=== PATIENT | female | born 1945 | race Caucasian/White ===

== ENCOUNTER → 2016-11-13 | Outpatient (CLI) | payer OTHER ==
[~2016-11-13] MED LIST: AMOXICILLIN875 MG PO; ASPIRIN 32325 MG/TAB PO; CEPHALEXIN500 M1 PO; CLINDAMYCIN HC300 MG PO; CRESTOR40 MG PO; ECOTRIN325 MG PO; EPA FISH OIL1000 MG PO; FISH OIL CONC1000 MG PO; FLEXERIL 1010 MG/TAB PO; FORTAMET1000 MG PO; GLUCOPHAGE1000 MG PO; HCTZ 25MG TAB25 MG PO; HCTZ PO; LISINOPRIL PO; LISINOPRIL10 MG PO; LORTAB 5/500 501 TAB PO; MVI PO; NORCO 325 MG-51 TAB PO; NORCO 325 MG-7.1 TAB PO; PRAVACHOL 40MG40 MG PO; PREDNISONE10 MG; PREDNISONE20 MG PO; SYNTHROID PO; SYNTHROID0.175 MG PO; SYNTHROID0.2 MG/TAB PO; VITAMIN; ZESTRIL 10MG10 MG PO; ZESTRIL 20MG TA20 MG PO; ZESTRIL 5MG5 MG PO; ZOFRAN 4MG T4 MG/TAB PO
[2016-11-13 14:12] LABS: CALCIUM 9.7 mg/dL (8.4-10.2); CREATININE, serum 1.66 mg/dL (0.52-1.25); POTASSIUM 4.9 mmol/L (3.4-5.0)
== END ==
LOC: COL.LAB 13:07
PROVIDERS: Internal Medicine Nephrology
DX: N18.3 Chronic kidney disease, stage 3 (moderate) (principal)

== ENCOUNTER → 2016-12-27 | Outpatient (CLI) | payer OTHER ==
[2016-12-27 08:38] LABS: CALCIUM 9.4 mg/dL (8.4-10.2); CREATININE, serum 1.5 mg/dL (0.52-1.25); POTASSIUM 4.8 mmol/L (3.4-5.0)
== END ==
LOC: COL.LAB 08:01
PROVIDERS: Internal Medicine Nephrology
DX: N18.3 Chronic kidney disease, stage 3 (moderate) (principal)

== ENCOUNTER → 2017-01-09 | Outpatient (CLI) | payer OTHER | LOC: MC.RAD 07:40 | DX: Z12.31 Encounter for screening mammogram for malignant neoplasm of breast (principal) ==

== ENCOUNTER → 2017-06-15 | Outpatient (REF) | LOC: WSOH 14:00 | DX: Z02.89 Encounter for other administrative examinations (principal) ==

== ENCOUNTER 2017-08-20 06:54 | Day surgery (SDC) | payer OTHER ==
[~2017-08-20] VITALS: Ht 165.1 cm; Wt 106.4 kg
[~2017-08-20 06:54] MED LIST changes: -ZESTRIL 10MG10 MG PO
[2017-08-20] MEDS ORDERED: ASPIRIN 81M81 MG/TA2 PO (07:15)
[2017-08-20 07:32] VITALS: BP 154/73; PULSE 53; TEMP 97
[2017-08-20 09:02] VITALS: BP 146/76; PULSE 57; TEMP 97.4
[2017-08-20 09:18] VITALS: BP 136/66; PULSE 59
[2017-08-20 14:52] VITALS: BP 111/43; PULSE 55
== END 2017-08-20 09:40 | disposition home or self-care (01) ==
LOC: SDCO 06:54
DX: D12.3 Benign neoplasm of transverse colon (principal); K64.0 First degree hemorrhoids; K57.30 Diverticulosis of large intestine without perforation or abscess without bleeding; E11.9 Type 2 diabetes mellitus without complications; I10 Essential (primary) hypertension; E03.9 Hypothyroidism, unspecified; I25.10 Atherosclerotic heart disease of native coronary artery without angina pectoris; E78.5 Hyperlipidemia, unspecified; Z95.1 Presence of aortocoronary bypass graft; Z90.710 Acquired absence of both cervix and uterus
CPT/HCPCS: OP; J2250; J3010; J7030

== ENCOUNTER → 2017-10-24 | Outpatient (CLI) | payer OTHER ==
[~2017-10-24] MED LIST changes: +ASPIRIN 81M81 MG/TA2 PO
[2017-10-24 10:08] LABS: CALCIUM 9.2 mg/dL (8.4-10.2); CREATININE, serum 1.59 mg/dL (0.52-1.25); POTASSIUM 4.6 mmol/L (3.4-5.0)
== END ==
LOC: COL.LAB 06:27
PROVIDERS: Internal Medicine Nephrology
DX: N18.3 Chronic kidney disease, stage 3 (moderate) (principal)

== ENCOUNTER → 2018-01-22 | Outpatient (CLI) | payer BC | LOC: MC.RAD 08:22 | DX: Z12.31 Encounter for screening mammogram for malignant neoplasm of breast (principal) ==

== ENCOUNTER → 2019-02-25 | Outpatient (CLI) | payer OTHER | LOC: MC.RAD 08:09 | DX: Z12.31 Encounter for screening mammogram for malignant neoplasm of breast (principal) ==

== ENCOUNTER → 2019-07-04 | Outpatient (CLI) | payer OTHER ==
[2019-07-04 11:33] LABS: CALCIUM 9.5 mg/dL (8.4-10.2); CREATININE, serum 1.69 (0.52-1.25); POTASSIUM 4.7 mmol/L (3.4-5.0)
== END ==
LOC: COL.LAB 10:58
PROVIDERS: Internal Medicine Nephrology
DX: N17.9 Acute kidney failure, unspecified (principal)

== ENCOUNTER → 2019-08-31 | Outpatient (CLI) | payer OTHER ==
[2019-08-31 09:56] LABS: CREATININE, serum 2.17 (0.52-1.25); POTASSIUM 4.6 mmol/L (3.4-5.0)
== END ==
LOC: COL.LAB 08:23
PROVIDERS: Internal Medicine Cardiovascular Disease
DX: I15.0 Renovascular hypertension (principal)

== ENCOUNTER → 2020-02-16 | Outpatient (CLI) | payer OTHER | LOC: COL.VAS 13:45 | DX: R60.0 Localized edema (principal) ==

== ENCOUNTER 2020-07-22 14:05 | Inpatient (IN) | payer OTHER, MEDICARE ==
[~2020-07-22] VITALS: Ht 165.2 cm; Wt 127.5 kg
[2020-09-05] VITALS (12 sets, daily range): BP systolic 126–219; BP diastolic 49–69; PULSE 52–67; TEMP 97.6–98.7
[2020-09-05] MEDS ORDERED: GLUCOPHAGE500 MG/TAB PO (04:38)
[2020-09-05] MEDS ORDERED: FLONASEALLERGY NS (04:40)
[2020-09-05] MEDS ORDERED: LASIX 20MG TABL20 MG PO (04:41)
[2020-09-05] MEDS ORDERED: PROVENTIL0.09 MG/A1 IH (04:41)
[2020-09-05] MEDS ORDERED: CEPHALEXIN500 M1 PO (04:43)
--- NOTE | 2020-09-05 10:40 | NUR ---
PT ARRIVED TO ROOM 329 FROM OR FOR RTK AT 1040. PT A&O. VSS. HEAD TO TOE ASSESSMENT DONE, SEE NOTES. PT HAS LITTLE FEELING IN BLE. ABLE TO WIGGLE TOES. RIGHT LEG WRAPPED WITH ACEWRAP, DRESSING CD&I. PT HAS NO COMPLAINTS OF N/V OR PAIN. RESTING IN BED. CALL LIGHT IN REACH.
--- NOTE | 2020-09-05 20:00 | NUR ---
Patient in bed resting. Alert and oriented x 3. Assessment complete. States mild aching to right knee. Acewrap to right knee is CDI. Pedal pulses intact. IV fluids infusing per orders to right hand IV. X 1 assist to restroom with steady gait. Mac hose to LLE. SCDs to BLE. Denies further needs at this time.
--- NOTE | 2020-09-05 20:45 | NUR ---
Patient requests pain medication for right knee pain 5/10 after up to restroom, medications given per orders. ICE pack provided for knee. Denies further needs at this time.
[2020-09-06 04:42] VITALS: BP 108/50; PULSE 52; TEMP 97.6
[2020-09-06 05:54] LABS: HEMATOCRIT 31.2 % (37.0-47.0); HEMOGLOBIN 9.8 g/dl (12.5-16.0)
--- NOTE | 2020-09-06 06:15 | NUR ---
Patient has done well throughout the night, minimal needs. Cpap on throughout the night. Has been up to restroom with stand by assist and steady gait, with walker. Fluids continue infusing per orders. Denies pain at this time. Will report off to day shift.
[2020-09-06 07:56] VITALS: BP 141/44; PULSE 56; TEMP 97.5
--- NOTE | 2020-09-06 09:16 | NUR ---
The patient is known to this SW. SW met with the patient to discuss discharge plan. The patient lives in [place] and her brother lives with her. She reports independence with ADLs and has a cane, walker, and CPAP. The patient's PCP is Dr. Alfredo Millard and she receives her medications from [facility]. She reports no difficulties obtaining her meds. The patient does not have a DPOA-HC, but she was interested in obtaining a form. CELINA provided. The patient is not . She has three children. Her daughter Viviane (ph#[phone]) is her person to contact. The patient plans to return home with her brother and receive outpatient PT at [facility] on [address] upon discharge. No additional needs at this time.
--- NOTE | 2020-09-06 10:00 | NUR ---
Patient alert and oriented, answers questions appropriately. See assessment. RLE with dressing CDI. Pulses palpable to RLE, no numbness or tingling noted. FWB to RLE. No c/o at this time.
[2020-09-06 11:45] VITALS: BP 109/35; PULSE 44; TEMP 97.5
--- NOTE | 2020-09-06 11:56 | NUR ---
First visit from the net front end developer. No needs right now.
[2020-09-06 17:12] VITALS: BP 136/50; PULSE 51; TEMP 97.2
[2020-09-06 17:15] VITALS: BP 113/33; PULSE 57; TEMP 97.2
[2020-09-06 17:17] VITALS: BP 133/58; PULSE 57; TEMP 97.2
--- NOTE | 2020-09-06 20:38 | NUR ---
Resting in bed. Assessment complete and WNL. Patient has BLAKE hose on with bulky dressing tp right knee present. Reporting mild pains-denied need for pain medications. Denies other needs at this time. INT right hand without complications. Call light in reach.
--- NOTE | 2020-09-07 | NUR ---
Resting in bed. Call light in reach.
[2020-09-07 01:07] VITALS: BP 125/47; BP 98/40; PULSE 74; TEMP 97.4; TEMP 98.2
--- NOTE | 2020-09-07 04:00 | NUR ---
Resting in bed. Denies needs. Denies pain. Call light in reach.
[2020-09-07 04:37] VITALS: BP 114/48; PULSE 48; TEMP 97.4
--- NOTE | 2020-09-07 05:41 | NUR ---
Patient required x1 dose of tramadol and x1 dose of tylenol for pain control throughout night. Otherwise uneventful night. Resting in bed this AM. Call light in reach.
--- NOTE | 2020-09-07 07:18 | NUR ---
Report given to NESTOR Ballard
[2020-09-07 08:04] VITALS: BP 129/41; PULSE 50; TEMP 97.7
[2020-09-07] MEDS ORDERED: ASPI325T6 PO (08:07)
[2020-09-07] MEDS ORDERED: ULTRAM 50MG TAB50 MG PO (08:09)
[2020-09-07] MEDS ORDERED: NORCO 325 MG-51 TAB PO (08:09)
[2020-09-07] MEDS ORDERED: SENOKOT S 50 MG1 TAB PO (08:10)
--- NOTE | 2020-09-07 09:00 | NUR ---
SHIFT ASSESSMENT COMPLETED AND AM MEDICATIONS WITH PAIN PILL ADIMINISTERED AT THIS TIME. AM BLOOD PRESSURE MEDICATIONS HELD FOR SOFT BP'S, BRADYCARDIA NOTED. OTHERWISE VSS. 1+ EDEMA TO BLE NOTED WITH 3+ TO ANKLES. POSITIVE PEDAL PULSES EQUAL BILATERALLY. CAP REFILL <3 SECONDS. CMS INTACT. BLAKE HOSE IN PLACE TO LLE. RIGHT KNEE ROBERT DRESSING REMOVED AT THIS TIME. EDGES WELL APPROXIMATED. AQUACELL DRESSING APPLIED TO RIGHT KNEE INCISION. 2 SMALL BLISTERS TO RIGHT KIRKLAND NOTED WHEN ROBERT WRAP DRESSING WAS REMOVED. TOP BLISTER OPEN AND BLEEDING, DISTAL BLISTER CLOSED. BANDAIDS APPLIED OVER BOTH. RLE ELEVATED ON PILLOW WITH ICE PACK TO THE KNEE. CALL LIGHT IN REACH. PATIENT DENIES ANY NEEDS AT THIS TIME.
--- NOTE | 2020-09-07 09:30 | NUR ---
RIGHT HAND INT DISCONTINUED PER PENDING DISCHARGE. PATIENT TO SHOWER WITH OT.
--- NOTE | 2020-09-07 11:38 | NUR ---
PATIENT ASLEEP UPON ENTRY TO THE ROOM. UPON WAKING, PATIENT REPORTS THAT SHE FEELS DIZZY. VITALS OBTAINED AT THIS TIME. VSS. HEART RATE YOVANI. PATIENT REPORTS THAT IS NORMAL FOR HER. PATIENT STATES THAT SHE BELIEVES ITS FROM THE PAIN MEDICATION. WILL CONTINUE TO MONITOR.
[2020-09-07 11:39] VITALS: BP 138/44; PULSE 50; TEMP 97.6
--- NOTE | 2020-09-07 12:54 | NUR ---
DISCHARGE INSTRUCTIONS REVIEWED WITH PATIENT. QUESTIONS SOUGHT AND ANSWERED. PATIENT AWAITING ARRIVAL OF RIDE FOR DISCHARGE.
--- NOTE | 2020-09-07 13:20 | NUR ---
PATIENT PERSONAL BELONGINGS GATHERED. PATIENT TAKEN TO PERSONAL VEHICLE VIA WHEELCHAIR. PATIENT DISCHARGED.
== END 2020-09-07 13:20 | disposition home or self-care (01) | DRG 470 ==
LOC: JCC 09-05 05:16
PROVIDERS: ADMIT Orthopaedic Surgery
PROC: 0SRC069 Replacement of Right Knee Joint with Oxidized Zirconium on Polyethylene Synthetic Substitute, Cemented, Open Approach (ICD-10-PCS; principal; 2020-09-05 07:30)
DX: M17.11 Unilateral primary osteoarthritis, right knee (principal)
CPT/HCPCS: A9284; C1776; J0690; J1100; J1885; J2250; J2405; J2704; J7030; J7120

== ENCOUNTER 2020-08-29 15:04 | Outpatient (RCR) | payer OTHER ==
[2020-09-05] MEDS ORDERED: GLUCOPHAGE500 MG/TAB PO (04:38)
[2020-09-05] MEDS ORDERED: FLONASEALLERGY NS (04:40)
[2020-09-05] MEDS ORDERED: LASIX 20MG TABL20 MG PO (04:41)
[2020-09-05] MEDS ORDERED: PROVENTIL0.09 MG/A1 IH (04:41)
[2020-09-05] MEDS ORDERED: CEPHALEXIN500 M1 PO (04:43)
[2020-09-07] MEDS ORDERED: ASPI325T6 PO (08:07)
[2020-09-07] MEDS ORDERED: ULTRAM 50MG TAB50 MG PO (08:09)
[2020-09-07] MEDS ORDERED: NORCO 325 MG-51 TAB PO (08:09)
[2020-09-07] MEDS ORDERED: SENOKOT S 50 MG1 TAB PO (08:10)
== END 2020-09-15 09:53 | disposition home or self-care (01) ==
LOC: WSC 15:04
DX: Z01.818 Encounter for other preprocedural examination (principal); M17.11 Unilateral primary osteoarthritis, right knee

== ENCOUNTER → 2020-10-10 | Outpatient (RCR) | payer OTHER ==
[~2020-10-10] MED LIST changes: +ASPI325T6 PO; +FLONASEALLERGY NS; +GLUCOPHAGE500 MG/TAB PO; +LASIX 20MG TABL20 MG PO; +PROVENTIL0.09 MG/A1 IH; +SENOKOT S 50 MG1 TAB PO; +ULTRAM 50MG TAB50 MG PO
== END | disposition home or self-care (01) ==
LOC: WSC
DX: Z96.651 Presence of right artificial knee joint (principal)

== ENCOUNTER 2020-11-02 10:30 | Outpatient (RCR) | payer OTHER | END 2020-11-03 13:31 | disposition home or self-care (01) | LOC: WSC 10:30 | DX: Z96.651 Presence of right artificial knee joint (principal) ==

== ENCOUNTER → 2021-01-13 | Outpatient (CLI) | payer OTHER ==
[~2021-01-13] MED LIST changes: +PERCOCET 325 MG1 TA2 PO
[2021-01-13 08:50] LABS: CREATININE, serum 2.03 (0.52-1.25); POTASSIUM 4.1 mmol/L (3.4-5.0)
== END ==
LOC: COL.LAB 07:41
PROVIDERS: Internal Medicine Nephrology
DX: N17.9 Acute kidney failure, unspecified (principal)

== ENCOUNTER → 2021-02-01 | Outpatient (CLI) | payer OTHER | LOC: MC.RAD 10:08 | DX: Z12.31 Encounter for screening mammogram for malignant neoplasm of breast (principal) ==

== ENCOUNTER → 2021-02-07 | Outpatient (CLI) | payer OTHER ==
[2021-02-07 09:46] LABS: BASO # 0.1 (0.0-0.2); BASO % 0.6 % (0.0-2.0); EOS # 0.3 (0.0-0.7); EOS % 3.8 % (0-4.0); GRAN # 5.4 (1.4-6.5); GRAN % 66.3 % (42.2-75.2); HEMATOCRIT 37.9 % (37.0-47.0); HEMOGLOBIN 11.9 g/dl (12.5-16.0); LYMPH # 1.7 (1.2-3.4); MEAN CELL VOLUME 95 fl (80.0-100.0); MEAN CORPUSCULAR HEMOGLOBIN 30 pg (27.0-31.0); MEAN CORPUSCULAR HGB CONC 31 g/dl (33.0-37.0); MEAN PLATELET VOLUME 10.6 fl (7.4-10.4); MONO # 0.6 (0.1-0.6); MONO % 7.9 % (1.7-9.3); PLATELET COUNT 273 K/mm3 (130-400); REDCELL DISTRIBUTION WIDTH-CV 14.7 % (11.5-14.5)
[2021-02-07 10:09] LABS: ALBUMIN 4.2 gm/dL (3.5-5.0); BILIRUBIN,TOTAL 0.3 mg/dL (0.0-1.0); CALCIUM 9.2 mg/dL (8.4-10.2); CHOLESTEROL RISK RATIO 2.1; CREATININE, serum 1.68 (0.52-1.25); POTASSIUM 4.7 mmol/L (3.4-5.0); TOTAL PROTEIN 7.4 gm/dL (6.4-8.2)
[2021-02-07 10:39] LABS: THYROID STIMULATING HORMONE 0.299 uIU/mL (0.465-4.680)
[2021-02-07 11:05] LABS: COLLECTION METHOD CLEAN CATCH
[2021-02-07 11:12] LABS: MUCOUS Present /lpf; PH 5 (5-8); SQUAMOUS EPITHELIAL 0-2 /hpf; URINE APPEARANCE Hazy; URINE BACTERIA None Seen /hpf; URINE BILIRUBIN Negative (NEGATIVE); URINE BLOOD Negative (NEGATIVE); URINE COLOR Yellow; URINE GLUCOSE Negative (NEGATIVE); URINE KETONE Negative (NEGATIVE); URINE LEUKOCYTE ESTERASE Negative (NEGATIVE); URINE NITRATE Negative (NEGATIVE); URINE PROTEIN(semi-quant) Negative (NEGATIVE); URINE RBC 0-2 /hpf; URINE UROBILINOGEN Negative (NEGATIVE)
== END ==
LOC: COL.LAB 06:19
PROVIDERS: Family Medicine
DX: Z00.00 Encounter for general adult medical examination without abnormal findings (principal); Z13.220 Encounter for screening for lipoid disorders; Z13.29 Encounter for screening for other suspected endocrine disorder

== ENCOUNTER → 2021-02-13 | Outpatient (CLI) | payer OTHER | LOC: COL.LAB 14:16 | DX: E03.9 Hypothyroidism, unspecified (principal) ==

== ENCOUNTER 2021-04-08 13:58 | Emergency (ER) | payer OTHER ==
[~2021-04-08] VITALS: Ht 165.1 cm; Wt 120.5 kg
[~2021-04-08 13:58] MED LIST changes: -PERCOCET 325 MG1 TA2 PO
[2021-04-08 14:23] LABS: COLLECTION METHOD CLEAN CATCH
[2021-04-08 14:39] LABS: MUCOUS Present /lpf; PH 5 (5-8); SQUAMOUS EPITHELIAL 0-2 /hpf; URINE APPEARANCE Clear; URINE BACTERIA Rare /hpf; URINE BILIRUBIN Negative (NEGATIVE); URINE BLOOD Negative (NEGATIVE); URINE COLOR Yellow; URINE GLUCOSE Negative (NEGATIVE); URINE KETONE Negative (NEGATIVE); URINE LEUKOCYTE ESTERASE Negative (NEGATIVE); URINE NITRATE Negative (NEGATIVE); URINE PROTEIN(semi-quant) 1+ (NEGATIVE); URINE RBC 0-2 /hpf; URINE UROBILINOGEN Negative (NEGATIVE)
[2021-04-08 15:45] LABS: BASO % 0.5 % (0.0-2.0); EOS # 0.3 (0.0-0.7); EOS % 3.2 % (0-4.0); GRAN # 6.3 (1.4-6.5); GRAN % 72.2 % (42.2-75.2); HEMOGLOBIN 11.8 g/dl (12.5-16.0); LYMPH # 1.4 (1.2-3.4); LYMPH % 15.6 % (20.0-51.0); MEAN CELL VOLUME 94 fl (80.0-100.0); MEAN CORPUSCULAR HEMOGLOBIN 30 pg (27.0-31.0); MEAN CORPUSCULAR HGB CONC 32 g/dl (33.0-37.0); MEAN PLATELET VOLUME 9.8 fl (7.4-10.4); MONO # 0.7 (0.1-0.6); PLATELET COUNT 206 K/mm3 (130-400); RED BLOOD COUNT 3.89 M/mm3 (4.10-5.30); REDCELL DISTRIBUTION WIDTH-CV 14.6 % (11.5-14.5)
[2021-04-08 15:46] LABS: HEMATOCRIT 36.5 % (37.0-47.0)
[2021-04-08 15:59] LABS: BILIRUBIN,TOTAL 0.3 mg/dL (0.0-1.0); C-REACTIVE PROTEIN 1.5 mg/dL (0.0-0.9); CALCIUM 8.6 mg/dL (8.4-10.2); CREATININE, serum 1.85 (0.52-1.25); POTASSIUM 4.7 mmol/L (3.4-5.0); TOTAL PROTEIN 7.2 gm/dL (6.4-8.2)
[2021-04-08] MEDS ORDERED: PERCOCET 325 MG1 TA2 PO (17:53)
[2021-04-08 18:31] VITALS: BP 155/67; PULSE 60; TEMP 97.6
== END 2021-04-08 18:30 | disposition home or self-care (01) ==
LOC: COL.ER 13:58
PROVIDERS: Nurse Practitioner
DX: K55.069 Acute infarction of intestine, part and extent unspecified (principal)
CPT/HCPCS: J1170; J2405; J7030

== ENCOUNTER → 2021-06-06 | Outpatient (CLI) | payer OTHER ==
[~2021-06-06] MED LIST changes: +PERCOCET 325 MG1 TA2 PO
== END ==
LOC: COL.LAB 07:29
DX: E55.9 Vitamin D deficiency, unspecified (principal); E03.9 Hypothyroidism, unspecified; E11.59 Type 2 diabetes mellitus with other circulatory complications

== ENCOUNTER → 2021-07-14 | Outpatient (CLI) | payer OTHER ==
[2021-07-14 08:23] LABS: CALCIUM 8.9 mg/dL (8.4-10.2); CREATININE, serum 2.34 mg/dL (0.57-1.11); POTASSIUM 4.6 mmol/L (3.5-4.5)
== END ==
LOC: COL.LAB 07:14
DX: N18.4 Chronic kidney disease, stage 4 (severe) (principal)

== ENCOUNTER → 2021-08-04 | Outpatient (CLI) | payer OTHER ==
[2021-08-04 08:02] LABS: CALCIUM 8.7 mg/dL (8.4-10.2); CREATININE, serum 2.1 mg/dL (0.57-1.11); POTASSIUM 4.8 mmol/L (3.5-4.5)
== END ==
LOC: COL.LAB 07:21
DX: N18.4 Chronic kidney disease, stage 4 (severe) (principal)

== ENCOUNTER → 2021-11-01 | Outpatient (CLI) | payer OTHER ==
[2021-11-01 07:53] LABS: CALCIUM 8.6 mg/dL (8.4-10.2); CREATININE, serum 1.92 mg/dL (0.57-1.11); POTASSIUM 4.7 mmol/L (3.5-4.5)
== END ==
LOC: COL.LAB 06:30
PROVIDERS: Internal Medicine Nephrology
DX: N18.4 Chronic kidney disease, stage 4 (severe) (principal)

== ENCOUNTER → 2021-11-17 | Outpatient (CLI) | payer OTHER | LOC: COL.LAB 07:24 | DX: E11.59 Type 2 diabetes mellitus with other circulatory complications (principal) ==

== ENCOUNTER → 2021-11-22 | Outpatient (CLI) | payer OTHER | LOC: COL.LAB 07:28 | DX: R06.00 Dyspnea, unspecified (principal) ==

== ENCOUNTER → 2022-02-20 | Outpatient (CLI) | payer OTHER ==
[2022-02-20 07:56] LABS: BASO # 0.1 K/mm3 (0.0-0.2); BASO % 0.6 % (0.0-2.0); EOS # 0.3 K/mm3 (0.0-0.7); GRAN # 6.2 K/mm3 (1.4-6.5); GRAN % 72.5 % (42.2-75.2); HEMATOCRIT 37.9 % (37.0-47.0); HEMOGLOBIN 11.8 g/dl (12.5-16.0); LYMPH # 1.4 K/mm3 (1.2-3.4); LYMPH % 15.8 % (20.0-51.0); MEAN CELL VOLUME 97 fl (80.0-100.0); MEAN CORPUSCULAR HEMOGLOBIN 30 pg (27-31); MEAN CORPUSCULAR HGB CONC 31 g/dl (33.0-37.0); MEAN PLATELET VOLUME 9.6 fl (7.4-10.4); MONO # 0.6 K/mm3 (0.1-0.6); MONO % 7.3 % (1.7-9.3); PLATELET COUNT 238 K/mm3 (130-400); REDCELL DISTRIBUTION WIDTH-CV 14.3 % (11.5-14.5)
[2022-02-20 08:05] LABS: ALBUMIN 3.4 gm/dL (3.4-4.8); BILIRUBIN,TOTAL 0.3 mg/dL (0.2-1.2); CALCIUM 8.5 mg/dL (8.4-10.2); CHOLESTEROL RISK RATIO 2.3; CREATININE, serum 2.29 mg/dL (0.57-1.11); POTASSIUM 5.1 mmol/L (3.5-4.5); TOTAL PROTEIN 6.8 gm/dL (6.2-8.1)
[2022-02-20 08:25] LABS: TSH w REFLEX 2.112 uIU/mL (0.350-4.940)
[2022-02-20 16:40] LABS: HEPATITIS C VIRUS ANTIBODY Negative (Negative)
== END ==
LOC: COL.LAB 07:21
PROVIDERS: Family Medicine
DX: Z11.59 Encounter for screening for other viral diseases (principal); E03.9 Hypothyroidism, unspecified; E78.5 Hyperlipidemia, unspecified; N18.4 Chronic kidney disease, stage 4 (severe); E55.9 Vitamin D deficiency, unspecified; E11.22 Type 2 diabetes mellitus with diabetic chronic kidney disease

== ENCOUNTER → 2022-03-14 | Outpatient (CLI) | payer OTHER ==
[2022-03-14 07:44] LABS: CALCIUM 9.2 mg/dL (8.4-10.2); CREATININE, serum 2.5 mg/dL (0.57-1.11)
== END ==
LOC: COL.LAB 07:04
DX: E87.5 Hyperkalemia (principal)

== ENCOUNTER → 2022-05-25 | Outpatient (CLI) | payer OTHER ==
[2022-05-25 08:00] LABS: CALCIUM 8.8 mg/dL (8.4-10.2); CREATININE, serum 2.42 mg/dL (0.57-1.11); POTASSIUM 4.6 mmol/L (3.5-4.5)
== END ==
LOC: COL.LAB 07:07
PROVIDERS: Internal Medicine Nephrology
DX: N18.4 Chronic kidney disease, stage 4 (severe) (principal); E11.8 Type 2 diabetes mellitus with unspecified complications

== ENCOUNTER → 2022-06-12 | Outpatient (CLI) | payer OTHER ==
[2022-06-12 08:13] LABS: CALCIUM 9.6 mg/dL (8.4-10.2); CREATININE, serum 2.66 mg/dL (0.57-1.11); POTASSIUM 4.5 mmol/L (3.5-4.5)
== END ==
LOC: COL.LAB 07:34
PROVIDERS: Family Medicine
DX: E11.22 Type 2 diabetes mellitus with diabetic chronic kidney disease (principal); N18.4 Chronic kidney disease, stage 4 (severe)

== ENCOUNTER → 2022-12-07 | Outpatient (CLI) | payer OTHER ==
[~2022-12-07] MED LIST changes: +ASPIRIN E.C. 8181 MG PO; +FARXIGA10 PO; -HCTZ 25MG TAB25 MG PO; +HCTZ12.5TAB PO; +SYNTHROID 0.10.15 MG PO
[2022-12-07 08:06] LABS: COLLECTION METHOD CLEAN CATCH
[2022-12-07 08:12] LABS: BASO % 0.6 % (0.0-2.0); EOS # 0.3 K/mm3 (0.0-0.7); EOS % 3.9 % (0.0-4.0); GRAN # 5.3 K/mm3 (1.4-6.5); GRAN % 72.9 % (42.2-75.2); HEMOGLOBIN 11.1 g/dl (12.5-16.0); LYMPH % 14.1 % (20.0-51.0); MEAN CELL VOLUME 98 fl (80.0-100.0); MEAN CORPUSCULAR HEMOGLOBIN 31 pg (27-31); MEAN CORPUSCULAR HGB CONC 32 g/dl (33.0-37.0); MEAN PLATELET VOLUME 9.8 fl (7.4-10.4); MONO # 0.6 K/mm3 (0.1-0.6); MONO % 7.7 % (1.7-9.3); PLATELET COUNT 211 K/mm3 (130-400); RED BLOOD COUNT 3.61 M/mm3 (4.10-5.30); REDCELL DISTRIBUTION WIDTH-CV 14.1 % (11.5-14.5)
[2022-12-07 08:18] LABS: HEMATOCRIT 35.2 % (37.0-47.0)
[2022-12-07 08:21] LABS: MUCOUS Present (NOT PRESENT); URINE APPEARANCE Clear (CLEAR/HAZY); URINE BACTERIA Rare /hpf (NONE SEEN); URINE BLOOD Negative (NEGATIVE); URINE COLOR Yellow (YELLOW); URINE GLUCOSE 2+ (NEGATIVE); URINE KETONE Negative (NEGATIVE); URINE NITRATE Negative (NEGATIVE); URINE PROTEIN(semi-quant) Negative (NEGATIVE); URINE RBC None Seen /hpf (0-2); URINE UROBILINOGEN 0.2 E.U/dL (0.2-1.0)
[2022-12-07 08:22] LABS: INR 0.9 (0.8-3.0); PROTHROMBIN TIME 10.7 SECONDS (9.7-12.8)
[2022-12-07 08:33] LABS: CALCIUM 8.5 mg/dL (8.4-10.2); CREATININE, serum 2.45 mg/dL (0.57-1.11); POTASSIUM 5.1 mmol/L (3.5-4.5)
== END ==
LOC: COL.LAB 12-06 05:37 → COL.RAD 07:29 → COL.LAB 07:29
PROVIDERS: Family Medicine
DX: Z01.818 Encounter for other preprocedural examination (principal); M25.562 Pain in left knee

== ENCOUNTER 2022-12-27 15:28 | Outpatient (RCR) | payer BC ==
[2023-01-03] MEDS ORDERED: ASPI325T6 PO (13:12)
[2023-01-03] MEDS ORDERED: ROXICODONE 55 MG/TAB PO (13:13)
[2023-01-03] MEDS ORDERED: ULTRAM 50MG TAB50 MG PO (13:13)
[2023-01-03] MEDS ORDERED: SENOKOT S 50 MG1 TAB PO (13:13)
== END 2023-01-04 ==
LOC: WSPT
DX: M17.12 Unilateral primary osteoarthritis, left knee (principal)

== ENCOUNTER 2023-01-01 05:36 | Observation (INO) | payer OTHER ==
[~2023-01-01] VITALS: Ht 165.1 cm; Wt 126.9 kg
[2023-01-01] VITALS (11 sets, daily range): BP systolic 134–191; BP diastolic 54–80; PULSE 56–84; TEMP 97.4–98.4
[2023-01-01 07:29] LABS: CALCIUM 9.2 mg/dL (8.4-10.2); CREATININE, serum 2.46 mg/dL (0.57-1.11); POTASSIUM 4.4 mmol/L (3.5-4.5)
--- NOTE | 2023-01-01 14:23 | NUR ---
Several visit attempts; Patient sleeping. Wholesale Loan Processor left card at bedside offering God's blessings and a thorough and rapid recovery.
--- NOTE | 2023-01-01 16:59 | NUR ---
PT STATED THAT SHE HAS GOT OUT OF BED TO GO TO THE BATHROOM- PT WALKED WITH THE WALKER- PT STATED SHE FELT STEADY.
--- NOTE | 2023-01-02 01:31 | NUR ---
SHIFT REPORT FROM RONA BAEZ. PATIENT IN BED ON ROOM ENTRY. ALERT AND ORIENTED. HS MEDS PER EMAR. L KNEE BULKY DRESSING CDI. SCDS IN PLACE. PRN MARIA G FOR PAIN. AMBULATES TO BATHROOM WITH SBA AND WALKER. ICE TO L KNEE. DENIES ADDITIONAL NEEDS. CALL LIGHT IN REACH.
[2023-01-02 05:00] VITALS: BP 143/62; PULSE 56; TEMP 97.4
[2023-01-02 07:22] LABS: HEMATOCRIT 31.9 % (37.0-47.0)
[2023-01-02 08:20] VITALS: BP 133/47; PULSE 52; TEMP 97.7
--- NOTE | 2023-01-02 09:46 | NUR ---
PATIENT ALERT AND ORIENTED X4. VSS. PATIENT HERE FOR LEFT TOTAL KNEE. BULKY DRESSING, CDI. IV TO RIGHT HAND INT. PATIENT C/O PAIN TO LEFT KNEE, 02/13, REQUESTS PAIN MEDICATION. PATIENT RESTING IN CHAIR WITH CALL LIGHT NEAR.
--- NOTE | 2023-01-02 10:48 | NUR ---
Follow-up; Patient thanked Waiter/Waitress Head for looking in on her again this morning and offering prayer and God's blessings for healing and a rapid and thorough recovery.
--- NOTE | 2023-01-02 11:48 | NUR ---
Cutting Supervisor met with patient to discuss discharge planning. 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 Patient lives alone in [place], [place] and sees Dr. Millard for primary care. Patient does not normally use any DME and is independent with ADLS. Patient does have a walker available for her recovery. Patient does not have DPOA-HC established, but stated she has taken the paperwork home before. Patient may be interested in doing one later. Patient plans to return home at time of discharge and will do outpatient PT at [facility]. Discharge Plan: Home
[2023-01-02 12:20] VITALS: BP 124/47; PULSE 51; TEMP 97.6
[2023-01-02 16:20] VITALS: BP 125/42; PULSE 59; TEMP 97.7
[2023-01-02 20:13] VITALS: BP 138/52; PULSE 58; TEMP 97.8
[2023-01-02 23:38] VITALS: BP 120/50; PULSE 58; TEMP 97.6
--- NOTE | 2023-01-03 00:11 | NUR ---
SHIFT REPORT FROM SUNNY BAEZ. PATIENT IN BED ON ROOM ENTRY. ALERT AND ORIENTED. HS MEDS PER EMAR. SVENELL TO L KNEE CDI. DENIES ADDITIONAL NEEDS.
[2023-01-03 04:05] VITALS: BP 136/46; PULSE 60; TEMP 97.7
[2023-01-03 07:52] VITALS: BP 128/49; PULSE 56; TEMP 97.7
--- NOTE | 2023-01-03 09:00 | NUR ---
Pt. sitting up in bed. Assisted pt. up to the bathroom. Pt.is 1 assist to get up and stanby with walker with ambulation. Pt. then went to the chair after using the bathroom. Dressing to lt. knee CDI with aquacel. Pt. reports pain at a 5 on pain scale, giving pain meds per orders. Therapy in to assist pt. with a shower. Pt. denies further needs. call light within reach.
[2023-01-03 11:40] VITALS: BP 128/42; PULSE 59; TEMP 98.4
[2023-01-03] MEDS ORDERED: ASPI325T6 PO (13:12)
[2023-01-03] MEDS ORDERED: SENOKOT S 50 MG1 TAB PO (13:13)
[2023-01-03] MEDS ORDERED: ROXICODONE 55 MG/TAB PO (13:13)
[2023-01-03] MEDS ORDERED: ULTRAM 50MG TAB50 MG PO (13:13)
--- NOTE | 2023-01-03 14:59 | NUR ---
Pt. has met discharge criteria. Reviewed and gave discharge packet to the pt. Pt. voices understanding. INT discontiued from rt. hand. Pt. waiting for ride.
--- NOTE | 2023-01-03 17:15 | NUR ---
Pt.'s daughter has arrived. Pt. escorted out by wheelchair.
== END 2023-01-03 17:30 | disposition home or self-care (01) ==
LOC: SDCO 05:36 → SURG 13:54 → SDCO 01-02 11:59 → SURG 01-02 12:00
PROVIDERS: Registered Nurse; ADMIT Orthopaedic Surgery
DX: M17.12 Unilateral primary osteoarthritis, left knee (principal); G47.33 Obstructive sleep apnea (adult) (pediatric); E11.22 Type 2 diabetes mellitus with diabetic chronic kidney disease; I12.9 Hypertensive chronic kidney disease with stage 1 through stage 4 chronic kidney disease, or unspecified chronic kidney disease; N18.9 Chronic kidney disease, unspecified; Z79.84 Long term (current) use of oral hypoglycemic drugs; Z95.1 Presence of aortocoronary bypass graft; Z79.899 Other long term (current) drug therapy
CPT/HCPCS: OP; A9270; A9284; C1713; C1776; J0690; J1100; J1170; J1200; J1815; J2250; J2370; J2405; J2704; J2795; J3010; J7120

== ENCOUNTER → 2023-01-04 | Outpatient (RCR) | payer BC ==
[~2023-01-04] MED LIST changes: +ROXICODONE 55 MG/TAB PO
== END ==
LOC: WSPT
DX: M17.12 Unilateral primary osteoarthritis, left knee (principal)

== ENCOUNTER 2023-02-01 09:45 | Outpatient (RCR) | payer OTHER | END 2023-02-03 | disposition home or self-care (01) | LOC: WSPT | DX: M17.12 Unilateral primary osteoarthritis, left knee (principal) ==

== ENCOUNTER 2023-07-18 12:40 | Inpatient (IN) | payer OTHER ==
[2023-07-18] VITALS (423 sets, daily range): BP systolic 95–138; BP diastolic 43–72; PULSE 54–79; TEMP 98.3–99.4; O2SAT 85–100
[~2023-07-18] VITALS: Ht 165.1 cm; Wt 115.5 kg
[~2023-07-18 12:40] MED LIST changes: +ZESTRIL2.5 MG PO
[2023-07-18 13:27] LABS: HEMATOCRIT 37.1 % (37.0-47.0); HEMOGLOBIN 11.8 g/dl (12.5-16.0); MEAN CELL VOLUME 97 fl (80.0-100.0); MEAN CORPUSCULAR HEMOGLOBIN 31 pg (27-31); MEAN CORPUSCULAR HGB CONC 32 g/dl (33.0-37.0); MEAN PLATELET VOLUME 9.6 fl (7.4-10.4); PLATELET COUNT 196 K/mm3 (130-400); RED BLOOD COUNT 3.81 M/mm3 (4.10-5.30); REDCELL DISTRIBUTION WIDTH-CV 13.9 % (11.5-14.5)
[2023-07-18 13:34] LABS: ALANINE AMINOTRANSFERASE 8 U/L (0-55); ALBUMIN 3.8 gm/dL (3.4-4.8); ALKALINE PHOSPHATASE 114 U/L (40-150); ANION GAP 14 mmol/L (7-16); AST,SGOT 14 U/L (5-34); BILIRUBIN,TOTAL 0.3 mg/dL (0.2-1.2); BLOOD UREA NITROGEN 47 mg/dL (10-20); CALCIUM 9.6 mg/dL (8.4-10.2); CARBON DIOXIDE 18 mmol/L (23-31); CHLORIDE 108 mmol/L (98-107); CREATININE, serum 2.23 mg/dL (0.57-1.11); GLUCOSE 103 mg/dL (70-99); POTASSIUM 4.4 mmol/L (3.5-4.5); SODIUM 140 mmol/L (136-145); TOTAL PROTEIN 7.3 gm/dL (6.2-8.1)
[2023-07-18 13:40] LABS: TROPONIN-I < 0.010 ng/mL (0.00-0.033)
[2023-07-18 14:21] LABS: BAND 7 % (0-10); EOSINOPHIL 3 % (0-4); LYMPHOCYTE 13 % (20.0-51.0); NEUTROPHILS 75 % (42.0-75.2); PLATELET ESTIMATE NORMAL (NORMAL)
[2023-07-18 14:33] LABS: PROTHROMBIN TIME 10.7 SECONDS (9.7-12.8)
[2023-07-18 14:42] LABS: PARTIAL THROMBOPLASTIN TIME 30.5 SECONDS (26.0-37.0)
--- NOTE | 2023-07-18 15:05 | NUR ---
See merge for all medication, assessment, intervention, and vital sign times.
--- NOTE | 2023-07-18 16:30 | NUR ---
Pt arrives to ICU 8 from laboratory supervisor at this time. Pt alert and oriented upon arrival. Pt has cath site to right groin; site clean and dry with no signs of bleeding or hematoma. Pt's flat time to be done at 2014. Pt instructed that she will be unable to site up until them; pt verbalized understanding. IV to left AC with nitro gtt infusing at fixed rate of 10 mcg/min. Pt's vitals stable upon arrival. Intake assessment and physical assessment completed at this time. Pt offers no complaints of pain. Call light in reach and bed alarm on.
[2023-07-19] VITALS (535 sets, daily range): BP systolic 113–137; BP diastolic 50–91; PULSE 43–60; TEMP 98–98.3; O2SAT 86–100
[2023-07-19 05:15] LABS: BASO % 0.6 % (0.0-2.0); EOS # 0.2 K/mm3 (0.0-0.7); EOS % 3.5 % (0.0-4.0); GRAN # 5.2 K/mm3 (1.4-6.5); GRAN % 75.8 % (42.2-75.2); LYMPH # 0.7 K/mm3 (1.2-3.4); LYMPH % 9.7 % (20.0-51.0); MEAN CELL VOLUME 95 fl (80.0-100.0); MEAN CORPUSCULAR HEMOGLOBIN 31 pg (27-31); MEAN CORPUSCULAR HGB CONC 33 g/dl (33.0-37.0); MEAN PLATELET VOLUME 9.9 fl (7.4-10.4); MONO # 0.7 K/mm3 (0.1-0.6); MONO % 10.1 % (1.7-9.3); PLATELET COUNT 195 K/mm3 (130-400); RED BLOOD COUNT 3.25 M/mm3 (4.10-5.30)
[2023-07-19 05:18] LABS: HEMATOCRIT 30.8 % (37.0-47.0)
[2023-07-19 05:35] LABS: CALCIUM 8.8 mg/dL (8.4-10.2); CREATININE, serum 2.07 mg/dL (0.57-1.11); MAGNESIUM 2.4 mg/dL (1.6-2.6); PHOSPHOROUS 4.1 mg/dL (2.3-4.7); POTASSIUM 4.5 mmol/L (3.5-4.5)
--- NOTE | 2023-07-19 08:55 | NUR ---
BENZENE WASHER OPERATOR reviewed pt's clinical record this morning and noted she was admitted for experiencing pain radiating in neck and shoulder while at work yesterday. Pt has a h/o CAD with bypass surgery. BENZENE WASHER OPERATOR met with pt briefly this morning before rounds. Pt was sitting up in chair, eating breakfast and watching TV. Pt was oriented to person, time, place and situation and she was s/w guarded but anwser questions. 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 She is ambulatory and independent in her ADL's/IADL's. Pt reports her primary care provider is Dr. Alfredo Millard, ph# [phone], ext. [phone]. She states she fills her prescriptions at the [facility]. When asked if she had a HCPOA to act on her behalf and make medical decisions in event she was unable to do so, pt stated she has the paperwork @ home but has not completed it. No other concerns were noted during visit. SW will continue to monitor for any d/c planning needs.
[2023-07-19] MEDS ORDERED: ASPIRIN E.C. 8181 MG PO (10:07)
[2023-07-19] MEDS ORDERED: BRILINTA90 MG PO (10:26)
--- NOTE | 2023-07-19 10:27 | NUR ---
Cardiac Rehab Note: Met with patient at bedside to discuss outpatient cardiac rehab program. Cardiac risk factors sheet provided-unable to review due to other providers entering room to discuss POC. Patient is planning a vacation to [place] next week for 10 days, plan to follow up with her after her vacation. Stated "I'll think about it" (as far as attending cardiac rehab). Encouraged patient to take multiple rest breaks and walk around during her trip to [place].
--- NOTE | 2023-07-19 11:33 | NUR ---
PT REMAINS STABLE ON ROUNDS. PT DENIES PAIN. PT UP TO CHAIR AFTER VOIDING. RESPIRATIONS EVEN AND UNLABORED. NO SIGN OF DISTRESS AT THIS TIME.
--- NOTE | 2023-07-19 11:37 | NUR ---
PT UP TO CHAIR.
--- NOTE | 2023-07-19 12:28 | NUR ---
PT UP TO CHAIR
--- NOTE | 2023-07-19 12:28 | NUR ---
Initial visit: Elementary School Art Teacher stopped by room on rounds. Pt was resting and content in her chair. Pt has no needs right now. Elementary School Art Teacher will follow up as needed.
--- NOTE | 2023-07-19 13:57 | NUR ---
PT STABLE WITH NO SIGN OF DISTRESS AT SHIFT CHANGE.
--- NOTE | 2023-07-19 15:43 | NUR ---
PT DISCHARGED TO HOME AT 1326. PT STATED THAT HER DAUGHTER WAS WAITING ON HER OUTSIDE AT THE FRONT ENTRANCE. PT WAS TRANSPORTED VIA WHEELCHAIR. ACCOMPANIED BY MYSELF. PT WAS STABLE WITH NO SIGN OF DISTRESS AT THIS TIME.
== END 2023-07-19 13:26 | disposition home or self-care (01) | DRG 322 ==
LOC: COL.ER 12:40 → ICU 14:04
PROVIDERS: Emergency Medicine; Internal Medicine; ADMIT Internal Medicine
PROC: 4A023N7 Measurement of Cardiac Sampling and Pressure, Left Heart, Percutaneous Approach (ICD-10-PCS; principal; 2023-07-18)
PROC: 027134Z Dilation of Coronary Artery, Two Arteries with Drug-eluting Intraluminal Device, Percutaneous Approach (ICD-10-PCS; 2023-07-18)
PROC: B2111ZZ Fluoroscopy of Multiple Coronary Arteries using Low Osmolar Contrast (ICD-10-PCS; 2023-07-18)
PROC: B2121ZZ Fluoroscopy of Single Coronary Artery Bypass Graft using Low Osmolar Contrast (ICD-10-PCS; 2023-07-18)
PROC: 02C03ZZ Extirpation of Matter from Coronary Artery, One Artery, Percutaneous Approach (ICD-10-PCS; 2023-07-18)
DX: I21.4 Non-ST elevation (NSTEMI) myocardial infarction (principal); E11.9 Type 2 diabetes mellitus without complications; Z79.4 Long term (current) use of insulin; E78.5 Hyperlipidemia, unspecified; I12.9 Hypertensive chronic kidney disease with stage 1 through stage 4 chronic kidney disease, or unspecified chronic kidney disease; N18.9 Chronic kidney disease, unspecified; E03.9 Hypothyroidism, unspecified; G89.29 Other chronic pain; G47.33 Obstructive sleep apnea (adult) (pediatric); Z95.1 Presence of aortocoronary bypass graft
CPT/HCPCS: C9604; J0583; J1644; J1920; J2250; J2270; J2305; J3010; Q9967

== ENCOUNTER → 2023-09-03 | Outpatient (CLI) | payer OTHER ==
[~2023-09-03] MED LIST changes: +BRILINTA90 MG PO
[2023-09-03 08:23] LABS: CALCIUM 9.1 mg/dL (8.4-10.2); CREATININE, serum 3.2 mg/dL (0.57-1.11)
== END ==
LOC: COL.LAB 08-27 13:00
PROVIDERS: Internal Medicine Nephrology
DX: E11.22 Type 2 diabetes mellitus with diabetic chronic kidney disease (principal); N18.4 Chronic kidney disease, stage 4 (severe)

== ENCOUNTER → 2023-10-10 | Outpatient (CLI) | payer OTHER ==
[2023-10-10 07:50] LABS: CALCIUM 9.1 mg/dL (8.4-10.2); CREATININE, serum 2.33 mg/dL (0.57-1.11); POTASSIUM 4.6 mmol/L (3.5-4.5)
== END ==
LOC: COL.LAB 07:08
PROVIDERS: Internal Medicine Nephrology
DX: E11.22 Type 2 diabetes mellitus with diabetic chronic kidney disease (principal); N18.4 Chronic kidney disease, stage 4 (severe)

== ENCOUNTER → 2023-12-30 | Outpatient (CLI) | payer OTHER ==
[2023-12-30 09:30] LABS: ALBUMIN 3.1 gm/dL (3.4-4.8); CALCIUM 9.2 mg/dL (8.4-10.2); CREATININE, serum 2.45 mg/dL (0.57-1.11); PHOSPHOROUS 3.4 mg/dL (2.3-4.7); POTASSIUM 4.7 mmol/L (3.5-4.5)
== END ==
LOC: COL.LAB 08:39
PROVIDERS: Internal Medicine Nephrology
DX: I12.9 Hypertensive chronic kidney disease with stage 1 through stage 4 chronic kidney disease, or unspecified chronic kidney disease (principal); N18.4 Chronic kidney disease, stage 4 (severe); E11.22 Type 2 diabetes mellitus with diabetic chronic kidney disease

== ENCOUNTER → 2024-02-12 | Outpatient (CLI) | payer OTHER ==
[2024-02-12 07:51] LABS: HEMOGLOBIN 11.1 g/dl (12.5-16.0); MEAN CELL VOLUME 93 fl (80.0-100.0); MEAN CORPUSCULAR HEMOGLOBIN 32 pg (27-31); MEAN CORPUSCULAR HGB CONC 34 g/dl (33.0-37.0); MEAN PLATELET VOLUME 9.8 fl (7.4-10.4); PLATELET COUNT 230 K/mm3 (130-400); RED BLOOD COUNT 3.51 M/mm3 (4.10-5.30); REDCELL DISTRIBUTION WIDTH-CV 14.9 % (11.5-14.5)
[2024-02-14 11:04] LABS: HEMATOCRIT 32.7 % (37.0-47.0)
[2024-02-18 11:19] LABS: ALBUMIN 3.1 g/dL (3.4-4.8); CREATININE, serum 2.6 mg/dL (0.57-1.11); PHOSPHOROUS 4.8 mg/dL (2.3-4.7); POTASSIUM 4.9 mEq/L (3.5-4.5); URIC ACID 7.9 mg/dL (2.6-6.0)
== END ==
LOC: COL.LAB 02-11 08:39
PROVIDERS: Physician Assistant
DX: Z00.00 Encounter for general adult medical examination without abnormal findings (principal); Z13.220 Encounter for screening for lipoid disorders; Z13.29 Encounter for screening for other suspected endocrine disorder; E11.59 Type 2 diabetes mellitus with other circulatory complications

== ENCOUNTER → 2024-03-17 | Outpatient (CLI) | payer OTHER | LOC: COL.LAB 07:10 | DX: I12.9 Hypertensive chronic kidney disease with stage 1 through stage 4 chronic kidney disease, or unspecified chronic kidney disease (principal); N18.4 Chronic kidney disease, stage 4 (severe); E11.8 Type 2 diabetes mellitus with unspecified complications ==

== ENCOUNTER → 2024-06-22 | Outpatient (CLI) | payer OTHER ==
[2024-06-22 08:00] LABS: CALCIUM 8.8 mg/dL (8.4-10.2); CREATININE, serum 2.78 mg/dL (0.57-1.11); POTASSIUM 4.6 mEq/L (3.5-4.5)
== END ==
LOC: COL.LAB 07:08
PROVIDERS: Internal Medicine Nephrology
DX: I12.9 Hypertensive chronic kidney disease with stage 1 through stage 4 chronic kidney disease, or unspecified chronic kidney disease (principal); N18.4 Chronic kidney disease, stage 4 (severe); E11.22 Type 2 diabetes mellitus with diabetic chronic kidney disease